=== PATIENT | male | born 1990 | race Caucasian/White ===

== ENCOUNTER 2016-11-28 02:07 | Emergency (ER) | payer BC, OTHER ==
[~2016-11-28] VITALS: Ht 177.8 cm; Wt 75.0 kg
[2016-11-28 02:11] VITALS: TEMP 36.8; Ht 177.8 cm; Wt 75.0 kg
--- NOTE | 2016-11-28 02:34 | EMERGENCY ROOM VISIT NOTE ---
History Report prepared by Jacqueline: Joaquin De La Vega Under the Supervision of: Dr. Bryce Sylvester D.O. First contact with patient: 02:20 Chief Complaint: ALCOHOL OVERDOSE Stated Complaint: MEDICAL CLEARANCE/MENTAL HEALTH EVALUATION History of Present Illness The patient is a 26 year old male who presents to the Emergency Room with alcoholic intoxication. The police states that the patient was arrested for a DUI, and he refused a breathalyzer. They report that the patient is able to perform tasks, but not well. The police state that when he got to the hospital, he refused to move his legs and stated that he was in pain. They notes that they need medical clearance to proceed. The patient states that he denies having anything wrong with him. He reports he is just another victim. Source of History: patient, police Onset: prior to arrival Position: other (global) Quality: other (alcohol intoxication) Timing: constant Review of Systems See HPI for pertinent positives and negatives. A total of ten systems were reviewed and were otherwise negative. Family History No pertinent family history stated. Social History Smoking Status: Current Every Day Smoker Occupation Status: employed Physical Exam Vital Signs Date Time Temp Pulse Resp B/P Pulse Ox O2 Delivery O2 Flow Rate FiO2 11/28/16 02:29 101 11/28/16 02:11 36.8 104 16 126/80 99 Room Air Physical Exam GENERAL: Awake, alert, well-appearing, in no distress HENT: Normocephalic, atraumatic. Oropharynx unremarkable. EYES: Normal conjunctiva. Sclera non-icteric. NECK: Supple. No nuchal rigidity. FROM. No JVD. RESPIRATORY: Clear to auscultation. CARDIAC: Regular rate, normal rhythm. Extremities warm and well perfused. Pulses equal. ABDOMEN: Soft, non-distended. No tenderness to palpation. No rebound or guarding. No masses. RECTAL: Deferred. MUSCULOSKELETAL: Chest examination reveals no tenderness. The back is symmetrical on inspection without obvious abnormality. There is no CVA tenderness to palpation. No joint edema. LOWER EXTREMITIES: Calves are equal size bilaterally and non-tender. No edema. No discoloration. NEURO: Normal sensorium. No sensory or motor deficits noted. SKIN: No rash or jaundice noted. Medical Decision & Procedures ED Course 0228: The patient was evaluated in room B07. A complete history and physical exam was performed. Discussed discharge instructions: he verbalized understanding and agreement. The patient is ready for discharge. Medical decision-making includes alcohol abuse alcohol intoxication drug abuse weakness, medical evaluation. Patient was evaluated by me there are no signs of trauma. I've spoken with the [facility] police according to them he is being charged with a DUI. Patient refused legal blood draw. Patient currently is not manifesting any signs of alteration in mental status [id number] he is sarcastic and interactive with me without any difficulty or slurred speech. Patient is able to move his extremities without any difficulty as well. I do not see any signs of trauma on this patient. I have discussed this evaluation with the police department and he will be discharged to their custody and is medically clear at 2:36 AM Impression Primary Impression: General medical exam Scribe Attestation The scribe's documentation has been prepared under my direction and personally reviewed by me in its entirety. I confirm that the note above accurately reflects all work, treatment, procedures, and medical decision making performed by me. Departure Information Dispostion Other Referrals No Doctor, Assigned (PCP) Forms HOME CARE DOCUMENTATION FORM, IMPORTANT VISIT INFORMATION Patient Instructions Alcohol Abuse - [facility]
[2016-11-28 02:47] VITALS: BP 119/65; PULSE 96; O2SAT 97
== END 2016-11-28 02:50 | disposition home or self-care (01) ==
LOC: C.EDB 02:09
DX: Z00.00 Encounter for general adult medical examination without abnormal findings (principal); F17.200 Nicotine dependence, unspecified, uncomplicated